=== PATIENT | male | born 1980 | race Caucasian/White ===

== ENCOUNTER 2019-12-19 15:47 | Emergency (ER) | payer OTHER ==
[~2019-12-19] VITALS: Ht 172.7 cm; Wt 100.0 kg
[2019-12-19 16:29] LABS: BASOPHILS % 1.7 % (0.0-2.0); EOSINOPHILS % 4.3 % (0.0-5.0); HEMATOCRIT. 42.8 % (42.0-52.0); HEMOGLOBIN. 14.9 g/dL (14.0-18.0); LYMPHOCYTES % 29.3 % (20.0-50.0); MEAN CORPUSCULAR HEMOGLOBIN 31.6 pg (28.0-32.0); MEAN CORPUSCULAR VOLUME 90.5 fL (80.0-94.0); MONOCYTES % 11.2 % (2.0-8.0); NEUTROPHILS % 53.5 % (40.0-76.0); PLATELET 199 x1000/uL (130-400); RED BLOOD CELL COUNT 4.72 mill/uL (4.7-6.1); RED CELL DISTRIBUTION WIDTH 13.5 % (11.6-14.6)
[2019-12-19 18:02] VITALS: BP 148/90
== END 2019-12-19 18:06 | disposition home or self-care (01) ==
LOC: ER 15:47
DX: K64.4 Residual hemorrhoidal skin tags (principal); F15.10 Other stimulant abuse, uncomplicated
CPT/HCPCS: 36415; 85025; 99283

== ENCOUNTER 2020-01-21 10:02 | Emergency (ER) | payer MEDICAID, OTHER ==
[~2020-01-21] VITALS: Ht 172.7 cm; Wt 98.0 kg
[2020-01-21 10:23] VITALS: BP 131/78
== END 2020-01-21 11:22 | disposition home or self-care (01) ==
LOC: ER 10:11
DX: L72.0 Epidermal cyst (principal)
CPT/HCPCS: 99283